=== PATIENT | male | born 1945 | race Caucasian/White ===

== ENCOUNTER 2017-11-22 00:25 | Day surgery (SDC) | payer MEDICARE, SELFPAY ==
[~2017-11-22 00:25] MED LIST: AMLO5 PO; ASPI81CH PO; CHOL10002 PO; ENOX100I SC; FISH1000 PO; GEMF600 PO; HYDACE5 PO; HYDCHL25 PO; LISHYD2025 PO; LISI20 PO; LIVALO PO; METF500 PO; MULVITMINF PO; WARF5; WARF5 PO; WARF6 PO; ZESTORETIC 20-251 EA PO
== END 2017-11-22 08:23 | disposition home or self-care (01) ==
LOC: ATC 00:25
DX: I35.9 Nonrheumatic aortic valve disorder, unspecified (principal)
CPT/HCPCS: 96372; J1650

== ENCOUNTER 2017-11-23 00:49 | Day surgery (SDC) | payer MEDICARE, SELFPAY | END 2017-11-23 08:10 | disposition home or self-care (01) | LOC: ATC 00:49 | DX: I35.9 Nonrheumatic aortic valve disorder, unspecified (principal); Z88.5 Allergy status to narcotic agent | CPT/HCPCS: 96372; J1650 ==

== ENCOUNTER 2017-11-24 00:44 | Day surgery (SDC) | payer MEDICARE, SELFPAY | END 2017-11-24 08:07 | disposition home or self-care (01) | LOC: ATC 00:44 | DX: I35.9 Nonrheumatic aortic valve disorder, unspecified (principal); E78.5 Hyperlipidemia, unspecified; I10 Essential (primary) hypertension | CPT/HCPCS: 96372; J1650 ==

== ENCOUNTER 2017-11-26 00:46 | Day surgery (SDC) | payer MEDICARE, SELFPAY ==
[2017-11-26] MEDS ORDERED: WARF10 PO (08:20)
[2017-11-27] MEDS ORDERED: WARF5 PO (08:28)
== END 2017-11-26 08:16 | disposition home or self-care (01) ==
LOC: ATC 00:46
DX: I35.9 Nonrheumatic aortic valve disorder, unspecified (principal); E55.9 Vitamin D deficiency, unspecified; I10 Essential (primary) hypertension; K21.9 Gastro-esophageal reflux disease without esophagitis
CPT/HCPCS: 36416; 85610; 96372; J1650

== ENCOUNTER 2017-11-27 01:04 | Day surgery (SDC) | payer MEDICARE, SELFPAY ==
[~2017-11-27 01:04] MED LIST changes: +WARF10 PO
[2017-11-27] MEDS ORDERED: WARF5 PO (08:28)
== END 2017-11-27 08:25 | disposition home or self-care (01) ==
LOC: ATC 01:04
DX: I35.9 Nonrheumatic aortic valve disorder, unspecified (principal); E78.5 Hyperlipidemia, unspecified; G47.33 Obstructive sleep apnea (adult) (pediatric); Z86.73 Personal history of transient ischemic attack (TIA), and cerebral infarction without residual deficits; K21.9 Gastro-esophageal reflux disease without esophagitis
CPT/HCPCS: 36416; 85610; 96372; J1650

== ENCOUNTER 2017-11-28 00:09 | Day surgery (SDC) | payer MEDICARE, SELFPAY | END 2017-11-28 08:14 | disposition home or self-care (01) | LOC: ATC 00:09 | DX: I35.9 Nonrheumatic aortic valve disorder, unspecified (principal); E78.5 Hyperlipidemia, unspecified; G47.33 Obstructive sleep apnea (adult) (pediatric); K21.9 Gastro-esophageal reflux disease without esophagitis; I10 Essential (primary) hypertension | CPT/HCPCS: 36416; 85610; 96372; J1650 ==

== ENCOUNTER 2017-11-29 00:19 | Day surgery (SDC) | payer MEDICARE, SELFPAY | END 2017-11-29 08:10 | disposition home or self-care (01) | LOC: ATC 00:19 | DX: I35.9 Nonrheumatic aortic valve disorder, unspecified (principal); E78.5 Hyperlipidemia, unspecified; G47.33 Obstructive sleep apnea (adult) (pediatric); K21.9 Gastro-esophageal reflux disease without esophagitis; I10 Essential (primary) hypertension | CPT/HCPCS: 36416; 85610; 96372; J1650 ==

== ENCOUNTER 2017-11-30 00:52 | Day surgery (SDC) | payer MEDICARE, SELFPAY | END 2017-11-30 08:20 | disposition home or self-care (01) | LOC: ATC 00:52 | DX: I35.9 Nonrheumatic aortic valve disorder, unspecified (principal); E78.5 Hyperlipidemia, unspecified; G47.33 Obstructive sleep apnea (adult) (pediatric); I10 Essential (primary) hypertension; K21.9 Gastro-esophageal reflux disease without esophagitis | CPT/HCPCS: 36416; 85610; 96372; J1650 ==

== ENCOUNTER 2017-12-01 00:28 | Day surgery (SDC) | payer MEDICARE, SELFPAY | END 2017-12-01 08:30 | disposition home or self-care (01) | LOC: ATC 00:28 | DX: I35.9 Nonrheumatic aortic valve disorder, unspecified (principal); E78.5 Hyperlipidemia, unspecified; G47.33 Obstructive sleep apnea (adult) (pediatric); I10 Essential (primary) hypertension; K21.9 Gastro-esophageal reflux disease without esophagitis | CPT/HCPCS: 36416; 85610; 96372; J1650 ==

== ENCOUNTER 2017-12-02 00:31 | Day surgery (SDC) | payer MEDICARE, SELFPAY | END 2017-12-02 08:05 | disposition home or self-care (01) | LOC: ATC 00:31 | DX: I35.9 Nonrheumatic aortic valve disorder, unspecified (principal); Z79.01 Long term (current) use of anticoagulants | CPT/HCPCS: 36416; 85610; 99211; J1650 ==

== ENCOUNTER → 2018-11-04 | Outpatient (CLI) | payer MEDICARE, OTHER ==
[2018-11-04 09:42] LABS: International Normalized Ratio 2.51; Prothrombin Time Results 24.5 Sec (9.7-11.5)
== END | disposition home or self-care (01) ==
LOC: LAB EV 08:27 → LAB SHORT 08:27
PROVIDERS: Physician Assistant
DX: Z79.01 Long term (current) use of anticoagulants (principal); Z51.81 Encounter for therapeutic drug level monitoring
CPT/HCPCS: 85610

== ENCOUNTER → 2019-11-06 | Outpatient (CLI) | payer MEDICARE ==
[~2019-11-06] MED LIST changes: +Coq-10100 MG PO; +Fish Oil Conc1000 MG PO; +LIVALO4 MG PO; +Ultram50 MG PO
[2019-11-06 12:04] LABS: Adenovirus F 40/41 Not Detected (NOT DETECT); Astrovirus Not Detected (NOT DETECT); Cryptosporidium Not Detected (NOT DETECT); Cyclospora Cayetanensis Not Detected (NOT DETECT); E. Coli O157 Not Detected (NOT DETECT); Entamoeba Histolytica Not Detected (NOT DETECT); Enteroaggregative E. coli-EAEC Not Detected (NOT DETECT); Enteropathogenic E. coli-EPEC Not Detected (NOT DETECT); Enterotoxigenic E. coli-ETEC Not Detected (NOT DETECT); Giardia Lamblia Not Detected (NOT DETECT); Norovirus GI/GII Not Detected (NOT DETECT); Plesiomonas Shigelloides Not Detected (NOT DETECT); Rotavirus A Not Detected (NOT DETECT); Salmonella Sp Not Detected (NOT DETECT); Sapovirus Not Detected (NOT DETECT); Shiga Toxin-prod E. coli-STEC Not Detected (NOT DETECT); Shigella/Enteroin E. coli-EIEC Not Detected (NOT DETECT); Vibrio Cholerae Not Detected (NOT DETECT); Vibrio Sp Not Detected (NOT DETECT); Yersinia Enterocolitica Not Detected (NOT DETECT)
[2019-11-06 14:01] LABS: Campylobacter Sp Not Detected (NOT DETECT)
== END ==
LOC: LAB EV 08:15
PROVIDERS: Physician Assistant
DX: R10.9 Unspecified abdominal pain (principal); R19.5 Other fecal abnormalities; R19.7 Diarrhea, unspecified
CPT/HCPCS: 0097U

== ENCOUNTER → 2020-02-05 | Outpatient (CLI) | payer MEDICARE | END | disposition home or self-care (01) | LOC: LAB EV 17:48 → LAB SHORT 17:48 | DX: J06.9 Acute upper respiratory infection, unspecified (principal) | CPT/HCPCS: U0003 ==

== ENCOUNTER → 2020-03-23 | Outpatient (CLI) | payer MEDICARE ==
[2020-03-23 12:52] LABS: Alanine Aminotransfer (ALT/SGP 23 U/L (12-78); Albumin/Globulin Ratio 1.2 (0.8-1.8); Alk Phos 86 U/L (40-126); Anion Gap 11 mmol/L (6-16); Aspartate Aminotrans (AST/SGOT 30 U/L (12-37); Bilirubin, Total 0.4 mg/dL (0.1-1.0); Blood Urea Nitrogen 17 mg/dL (8-24); Bun/Creatinine Ratio 14.4 (12.0-20.0); CO2, Blood 29 mmol/L (21-32); Chloride, Blood 104 mmol/L (98-108); Creatinine, Blood 1.18 mg/dL (0.60-1.20); Globulin, Blood 3.3 g/dL (2.2-4.0); Glomerular Filtration Rate >60 (60-); Glucose, Blood 168 mg/dL (70-99); Potassium, Blood 4.2 mmol/L (3.5-5.5); Sodium, Blood 144 mmol/L (136-145); Total Protein, Blood 7.3 g/dL (6.4-8.2)
[2020-03-23 12:53] LABS: Troponin I <0.017 ng/mL (0.000-0.040)
[2020-03-23 12:54] LABS: BASOPHILS ABSOLUTE AUTO 0.03 K/mm3 (0.00-0.23); BASOPHILS PERCENT AUTO 1 % (0-2); EOSINOPHILS ABSOLUTE AUTO 0.17 K/mm3 (0.00-0.68); EOSINOPHILS PERCENT AUTO 3 % (0-6); Hematocrit 38.7 % (37.0-53.0); Hemoglobin 13.4 g/dL (13.5-17.5); IMMATURE GRAN ABSOLUTE AUTO 0.09 K/mm3 (0.00-0.10); IMMATURE GRAN PERCENT AUTO 2 % (0-1); LYMPHOCYTES ABSOLUTE AUTO 0.86 K/mm3 (0.84-5.20); LYMPHOCYTES PERCENT AUTO 15 % (21-46); MONOCYTES ABSOLUTE AUTO 0.55 K/mm3 (0.16-1.47); MONOCYTES PERCENT AUTO 10 % (4-13); Mean Corpuscular HGB 28.3 pg (26.0-34.0); Mean Corpuscular HGB Conc 34.6 g/dL (31.5-36.5); Mean Corpuscular Volume 82 fL (80-100); Mean Platelet Volume 11.3 fL (9.1-12.4); NEUTROPHILS ABSOLUTE AUTO 3.95 K/mm3 (1.96-9.15); NEUTROPHILS PERCENT AUTO 70 % (41-73); Platelet Count 183 K/mm3 (150-400); RDW Coefficient Variation 13.7 % (11.7-14.2); RDW Standard Deviation 40.1 fL (35.1-46.3); Red Blood Cell Count 4.74 M/mm3 (4.30-5.90); White Blood Cell Count 5.65 K/mm3 (4.00-11.30)
[2020-03-23 13:22] LABS: International Normalized Ratio 3.55; Prothrombin Time Results 35.4 Sec (9.7-11.5)
== END ==
LOC: LAB EV 12:35 → LAB SHORT 12:35
PROVIDERS: Physician Assistant
DX: R07.9 Chest pain, unspecified (principal)
CPT/HCPCS: 80053; 83880; 84484; 85025; 85379; 85610

== ENCOUNTER 2020-07-24 07:11 | Day surgery (SDC) | payer MEDICARE ==
--- NOTE | 2020-07-24 09:00 | NUR ---
PERFORMED PROCEDURE IN RADIOLOGY WITH RN GAVE NITRO CHARTED ON PAPERWORK AND RETOOK VSS CHARTED ON PAPERWORK. PROCEDURE COMPLETED AND IV REMOVED AND DISCHARGE INSTRUCTIONS GONE OVER WITH AND PATIENT DISCHARGED FROM RADIOLOGY WITH ALL BELONGINGS
== END 2020-07-24 12:00 | disposition home or self-care (01) ==
LOC: CT 07:11 → ORD 07:11 → CT 08:00
PROVIDERS: Internal Medicine Cardiovascular Disease
DX: I08.0 Rheumatic disorders of both mitral and aortic valves (principal); I25.10 Atherosclerotic heart disease of native coronary artery without angina pectoris; I10 Essential (primary) hypertension; E78.5 Hyperlipidemia, unspecified; E78.00 Pure hypercholesterolemia, unspecified; E11.9 Type 2 diabetes mellitus without complications; N40.1 Benign prostatic hyperplasia with lower urinary tract symptoms; N13.8 Other obstructive and reflux uropathy; G47.30 Sleep apnea, unspecified; Z87.891 Personal history of nicotine dependence; Z79.01 Long term (current) use of anticoagulants; Z79.82 Long term (current) use of aspirin; Z79.84 Long term (current) use of oral hypoglycemic drugs; Z79.899 Other long term (current) drug therapy; Z88.5 Allergy status to narcotic agent; Z88.8 Allergy status to other drugs, medicaments and biological substances; Z95.2 Presence of prosthetic heart valve; Z90.49 Acquired absence of other specified parts of digestive tract
CPT/HCPCS: 75574; 82565; Q9967

== ENCOUNTER 2021-04-15 09:11 | Day surgery (SDC) | payer MEDICARE ==
[~2021-04-15] VITALS: Ht 175.3 cm; Wt 99.0 kg
[~2021-04-15 09:11] MED LIST changes: +LOSA50 PO
[2021-04-15] MEDS ORDERED: UBID10 PO (10:11)
[2021-04-15] MEDS ORDERED: Flomax0.4 MG PO (10:11)
[2021-04-15] MEDS ORDERED: HYDCHL25 PO (10:12)
[2021-04-15 10:59] LABS: International Normalized Ratio 1.52
--- NOTE | 2021-04-15 15:05 | NUR ---
DISACHARGE PT REMAINED A&OX3 AND DENIED ANY PAIN DURING RECOVERY. R RADIAL SITE-TR BAND REMOVED-CLOTH DOT, WHITE BOARD AND SLING IN PLACE.-CDI NO HEMATOMA NOTED. IV DC'D WITH CANULA IN TACT. PT ABLE TO DRESS SELF WITH LITTLE HELP. DISCHARGE PAPERWORK GONE OVER WITH PT AND SPOUSE. PT AND SPOUSE VERBALLY STATED THE UNDERSTANDING OF THE DISCHARGE EDUCATION AND DENIED ANY QUESTIONS AT THIS TIME. PT WHEELD OUT BY THIS NURSE.
== END 2021-04-15 15:41 | disposition home or self-care (01) ==
LOC: MHTC 09:11
PROVIDERS: Internal Medicine Cardiovascular Disease
DX: I25.118 Atherosclerotic heart disease of native coronary artery with other forms of angina pectoris (principal); I10 Essential (primary) hypertension; E11.9 Type 2 diabetes mellitus without complications; E78.5 Hyperlipidemia, unspecified; E66.9 Obesity, unspecified; Z68.33 Body mass index [BMI] 33.0-33.9, adult; E78.00 Pure hypercholesterolemia, unspecified; Z87.891 Personal history of nicotine dependence; Z88.8 Allergy status to other drugs, medicaments and biological substances; Z95.2 Presence of prosthetic heart valve; Z79.01 Long term (current) use of anticoagulants
CPT/HCPCS: 36415; 76937; 80048; 85025; 85347; 85610; 93005; 93010; 93458; 93571; 99152; 99153; A9270; C1769; C1887; C1894; J2250; J2370; J3010; J7030; J7050; Q9967

== ENCOUNTER 2021-09-30 11:12 | Day surgery (SDC) | payer MEDICARE ==
[~2021-09-30] VITALS: Ht 175.3 cm; Wt 106.4 kg
[~2021-09-30 11:12] MED LIST changes: +Flomax0.4 MG PO; +UBID10 PO
--- NOTE | 2021-09-30 12:02 | NUR ---
09/30/21 1201 MIGDALIA BOND TIMEOUT COMPLETED FOR INTRASCALENE NERVE BLOCK. PT WAS MONITORED WITH PULSE OX DURING PROCEDURE. TOLERATED PROCEDURE WELL.
--- NOTE | 2021-09-30 14:11 | NUR ---
09/30/21 1411 WADE ACEVES SUCTIONED PT SECRETIONS PT C/O NAUSEA SEE MAR FOR ANTIEMETIC
--- NOTE | 2021-09-30 16:06 | NUR ---
09/30/21 1606 WADE ACEVES PT C/O NAUSEA AFTER HAVEN GIVEN REGLAN- O2 SATS DROP TO 89% WHEN OFF OF O2.- DR SEE GAVE ORDERS FOR PHENEGRAN 25MG AND SCOPOLAMINE PATCH AND A DUONEB BREATHING TX. SEE EMAR PT GIVEN INCENTIVE SPIROMETER AND INSTRUCTED AND WATCHED HIM PERFORM IT. PHENEGRAN SEDATED PT AND O2 SATS DROP UNDER 90%. SPOUSE IS COACHING PT TO STAY AWAKE AND DO INCENTIVE SPIROMETER. COMES UP TO 93% SPOUSE SAYS PT HAS OBSTRUCTIVE SLEEP APNEA BUT REFUSED TO WEAR HIS MASK. SHE SAYS HIS OXYGEN SATS DROP WHEN HE SLEEPS AT HOME.
== END 2021-09-30 16:45 | disposition home or self-care (01) ==
LOC: ORSCSDS 11:12
PROVIDERS: Orthopaedic Surgery
PROC: 0LQ14ZZ Repair Right Shoulder Tendon, Percutaneous Endoscopic Approach (ICD-10-PCS; principal; 2021-09-30 12:15)
PROC: 0RNJ4ZZ Release Right Shoulder Joint, Percutaneous Endoscopic Approach (ICD-10-PCS; principal; 2021-09-30 12:15)
PROC: 0LS34ZZ Reposition Right Upper Arm Tendon, Percutaneous Endoscopic Approach (ICD-10-PCS; principal; 2021-09-30 12:15)
DX: S46.001A Unspecified injury of muscle(s) and tendon(s) of the rotator cuff of right shoulder, initial encounter (principal); M75.111 Incomplete rotator cuff tear or rupture of right shoulder, not specified as traumatic; M75.21 Bicipital tendinitis, right shoulder; M75.41 Impingement syndrome of right shoulder; I25.10 Atherosclerotic heart disease of native coronary artery without angina pectoris; I10 Essential (primary) hypertension; E78.00 Pure hypercholesterolemia, unspecified; G47.33 Obstructive sleep apnea (adult) (pediatric); Z79.01 Long term (current) use of anticoagulants; Z79.899 Other long term (current) drug therapy; Z87.891 Personal history of nicotine dependence
CPT/HCPCS: A9270; C1713; J0171; J0690; J1100; J1885; J2250; J2370; J2405; J2550; J2704; J2765; J3010; J7120

== ENCOUNTER → 2021-10-04 | Outpatient (CLI) | payer MEDICARE ==
[2021-10-04 11:40] LABS: International Normalized Ratio 1.16; Prothrombin Time Results 12.1 Sec (9.7-11.5)
== END ==
LOC: LAB 11:09 → LAB SHORT 11:09
PROVIDERS: Physician Assistant
DX: I35.9 Nonrheumatic aortic valve disorder, unspecified (principal)
CPT/HCPCS: 85610

== ENCOUNTER 2024-05-30 19:29 | Emergency (ER) | payer MEDICARE ==
[~2024-05-30] VITALS: Ht 175.3 cm; Wt 112.0 kg
[2024-05-30 19:46] VITALS: BP 159/79
[2024-05-30] MEDS ORDERED: Lidocaine 2% Viscous Soln 15 ML UDC PO ONE (20:55)
== END 2024-05-30 21:30 | disposition home or self-care (01) ==
LOC: ER 19:29
DX: J02.9 Acute pharyngitis, unspecified (principal); E11.9 Type 2 diabetes mellitus without complications; I10 Essential (primary) hypertension; Z88.8 Allergy status to other drugs, medicaments and biological substances; Z88.5 Allergy status to narcotic agent; Z79.899 Other long term (current) drug therapy; Z79.01 Long term (current) use of anticoagulants; Z87.891 Personal history of nicotine dependence
CPT/HCPCS: 87081; 87430; 99283-25; A9270

== ENCOUNTER → 2024-06-01 | Outpatient (CLI) | payer MEDICARE ==
[2024-06-01 12:55] LABS: BASOPHILS ABSOLUTE AUTO 0.03 K/mm3 (0.00-0.23); BASOPHILS PERCENT AUTO 0 % (0-2); EOSINOPHILS ABSOLUTE AUTO 0.13 K/mm3 (0.00-0.68); EOSINOPHILS PERCENT AUTO 1 % (0-6); Hematocrit 40.5 % (37.0-53.0); Hemoglobin 13.6 g/dL (13.5-17.5); IMMATURE GRAN ABSOLUTE AUTO 0.05 K/mm3 (0.00-0.10); IMMATURE GRAN PERCENT AUTO 0 % (0-1); LYMPHOCYTES ABSOLUTE AUTO 0.64 K/mm3 (0.84-5.20); LYMPHOCYTES PERCENT AUTO 5 % (21-46); MONOCYTES ABSOLUTE AUTO 0.66 K/mm3 (0.16-1.47); MONOCYTES PERCENT AUTO 6 % (4-13); Mean Corpuscular HGB 28.5 pg (26.0-34.0); Mean Corpuscular HGB Conc 33.6 g/dL (31.5-36.5); Mean Corpuscular Volume 85 fL (80-100); Mean Platelet Volume 10.5 fL (9.1-12.4); NEUTROPHILS ABSOLUTE AUTO 10.32 K/mm3 (1.96-9.15); NEUTROPHILS PERCENT AUTO 87 % (41-73); Platelet Count 160 K/mm3 (150-400); RDW Coefficient Variation 14.1 % (11.7-14.2); RDW Standard Deviation 43.4 fL (35.1-46.3); Red Blood Cell Count 4.78 M/mm3 (4.30-5.90); White Blood Cell Count 11.83 K/mm3 (4.00-11.30)
== END | disposition home or self-care (01) ==
LOC: LAB SHORT 12:51 → LAB 12:51
PROVIDERS: Physician Assistant Surgical
DX: B37.81 Candidal esophagitis (principal)
CPT/HCPCS: 85025

== ENCOUNTER 2024-09-12 06:31 | Day surgery (SDC) | payer MEDICARE ==
[2024-09-12] MEDS ORDERED: Lidocaine 2%-Epineph 1:100000 20 ML MDV ONE (07:41)
--- NOTE | 2024-09-12 09:33 | NUR ---
LINQ SITE SOFT NON-TENDER WITH NO HEMATOMA, NO BLEEDING AND INTACT DRESSING. DISCHARGE INSTRUCTIONS REVIEWED ALL QUESTIONS ANSWERED. PT AMBULATED OUT.
--- NOTE | 2024-09-12 10:17 | NUR ---
Pt back to recovery room. Pt reminded to keep head and legs down. Pt given sips of soda per request. Updated on plan of care. L groin is soft and no bleeding or hematoma.
== END 2024-09-12 23:35 | disposition home or self-care (01) ==
LOC: MHTC 06:31
DX: I47.29 Other ventricular tachycardia (principal); R00.1 Bradycardia, unspecified; I25.10 Atherosclerotic heart disease of native coronary artery without angina pectoris; I10 Essential (primary) hypertension; G47.33 Obstructive sleep apnea (adult) (pediatric); E78.00 Pure hypercholesterolemia, unspecified; Z95.2 Presence of prosthetic heart valve; Z87.891 Personal history of nicotine dependence; Z79.01 Long term (current) use of anticoagulants; Z79.899 Other long term (current) drug therapy; Z88.5 Allergy status to narcotic agent; Z88.8 Allergy status to other drugs, medicaments and biological substances; Z90.49 Acquired absence of other specified parts of digestive tract; I35.9 Nonrheumatic aortic valve disorder, unspecified
CPT/HCPCS: 33285; 36416; 85610; C1764

== ENCOUNTER 2024-11-14 18:59 | Emergency (ER) | payer MEDICARE ==
[~2024-11-14] VITALS: Ht 175.3 cm; Wt 109.3 kg
[2024-11-14 20:05] LABS: BASOPHILS ABSOLUTE AUTO 0.03 K/mm3 (0.00-0.23); BASOPHILS PERCENT AUTO 1 % (0-2); EOSINOPHILS ABSOLUTE AUTO 0.15 K/mm3 (0.00-0.68); EOSINOPHILS PERCENT AUTO 3 % (0-6); Hematocrit 40.9 % (37.0-53.0); Hemoglobin 14.1 g/dL (13.5-17.5); IMMATURE GRAN ABSOLUTE AUTO 0.05 K/mm3 (0.00-0.10); IMMATURE GRAN PERCENT AUTO 1 % (0-1); LYMPHOCYTES ABSOLUTE AUTO 1.16 K/mm3 (0.84-5.20); LYMPHOCYTES PERCENT AUTO 23 % (21-46); MONOCYTES ABSOLUTE AUTO 0.49 K/mm3 (0.16-1.47); MONOCYTES PERCENT AUTO 10 % (4-13); Mean Corpuscular HGB 28.7 pg (26.0-34.0); Mean Corpuscular HGB Conc 34.5 g/dL (31.5-36.5); Mean Corpuscular Volume 83 fL (80-100); Mean Platelet Volume 10.8 fL (9.1-12.4); NEUTROPHILS ABSOLUTE AUTO 3.17 K/mm3 (1.96-9.15); NEUTROPHILS PERCENT AUTO 63 % (41-73); Platelet Count 197 K/mm3 (150-400); RDW Coefficient Variation 13.7 % (11.7-14.2); RDW Standard Deviation 41.3 fL (35.1-46.3); Red Blood Cell Count 4.91 M/mm3 (4.30-5.90); White Blood Cell Count 5.05 K/mm3 (4.00-11.30)
[2024-11-14 20:32] LABS: Albumin, Blood 3.8 g/dL (3.4-5.0); Albumin/Globulin Ratio 1.2 (0.8-1.8); Bilirubin, Total 0.5 mg/dL (0.1-1.0); Bun/Creatinine Ratio 15.6 (12.0-20.0); Calcium, Blood 8.9 mg/dL (8.5-10.1); Creatinine, Blood 1.22 mg/dL (0.60-1.20); Globulin, Blood 3.1 g/dL (2.2-4.0); Potassium, Blood 3.6 mmol/L (3.5-5.5); Total Protein, Blood 6.9 g/dL (6.4-8.2)
[2024-11-14 21:56] VITALS: BP 148/79
== END 2024-11-14 22:22 | disposition home or self-care (01) ==
LOC: ER 18:59
PROVIDERS: Physician Assistant
DX: R00.1 Bradycardia, unspecified (principal); R00.2 Palpitations; E11.65 Type 2 diabetes mellitus with hyperglycemia; I10 Essential (primary) hypertension; Z95.2 Presence of prosthetic heart valve; Z87.891 Personal history of nicotine dependence; Z88.5 Allergy status to narcotic agent; Z88.8 Allergy status to other drugs, medicaments and biological substances; Z79.01 Long term (current) use of anticoagulants; Z79.899 Other long term (current) drug therapy; Z59.89 Other problems related to housing and economic circumstances
CPT/HCPCS: 71046; 80053; 84484; 85025; 93005; 93010; 99284-25

== ENCOUNTER → 2025-04-11 | Outpatient (CLI) | payer MEDICARE | LOC: LAB 07:22 → LAB SHORT 07:22 | DX: D04.21 Carcinoma in situ of skin of right ear and external auricular canal (principal); L30.9 Dermatitis, unspecified | CPT/HCPCS: 88312 ==